=== PATIENT | male | born 1975 | race Caucasian/White ===

== ENCOUNTER 2016-09-14 14:29 | Emergency (ER) | payer OTHER ==
[2016-09-14] MEDS ORDERED: Sodium Chloride 0.9% 100 ML ONE (15:11)
[2016-09-14] MEDS ORDERED: cefTRIAXone\\ROCEPHIN 1 GM VIAL ONE (15:11)
[2016-09-14] MEDS ORDERED: methylPREDNISolone Sod Succ/PF 125 MG/2 ML VIAL ONE (15:11)
[2016-09-14] MEDS ORDERED: Albuterol Sulfate 1.25 MG/3 ML NEB ONE (15:25)
[2016-09-14] MEDS ORDERED: Albuterol Sulfate 2.5 mg/3 ml Neb ONE (15:59)
--- NOTE | 2016-09-14 16:56 | PICIS ---
[facility] EMERGENCY RECORD TRIAGE (MonSep 14, 2016 14:39 ERUI) TRIAGE NOTES: states went to dr office for flu shot, became sob, and chest tightness, sent here. (MonSep 14, 2016 14:39 ERUI) PATIENT: NAME: Thompson Rick, AGE: 41, GENDER: male, : Mon1975, TIME OF GREET: MonSep 14, 2016 14:29, PREFERRED LANGUAGE: Swiss, ETHNICITY: Not or , ECODE BILLING MAP: [facility], SSN: [id number], Zip Code: [address], KG WEIGHT: 77.11, PHONE: , , , PERSON ID: [id number], PAYMENT: X Medicaid, PCP: MD Patel Kyle. (MonSep 14, 2016 14:39 ERUI) COMPLAINT: sob/chest tightness. (MonSep 14, 2016 14:39 ERUI) ADMISSION: URGENCY: 3 Urgent, ADMISSION SOURCE: Home, TRANSPORT: CAR, BED: ER -02. (MonSep 14, 2016 14:39 ERUI) SIRS SCORING: Heart Rate 55-109 (0), Temp range 96.8-101.1 (0), respiratory rate 12-24 (0), Mental Status altered: no (0). (14:44 ERUI) TRIAGE SCREENING: Patient denies suicidal ideation, Patient denies presence of domestic violence. (14:44 ERUI) TREATMENTS IN PROGRESS: Treatments given Prehospital: none. (14:44 ERUI) PROVIDERS: TRIAGE NURSE: Ines Damico RN. (MonSep 14, 2016 14:39 ERUI) PREVIOUS VISIT ALLERGIES: chlorpromazine, Tetanus Toxoid. (MonSep 14, 2016 14:39 ERUI) chlorpromazine, Tetanus Toxoid. (14:44 ERUI) KNOWN ALLERGIES chlorpromazine: Reaction: turned red, hyper Tetanus Toxoid Tetanus Vaccines & Toxoid (Unconfirmed): Reaction: Hives Tetanus Vaccines and Toxoid (Unconfirmed): Reaction: Hives CURRENT MEDICATIONS metFORMIN: TABLET : Strength - 500 mg : ORAL Patient Dose: 500 mg Oral 2 times a day. (14:49 ERUI) albuterol sulfate: VIAL, NEBULIZER (ML) : Strength - 2.5 mg/3 mL (0.083 %) : INHALATION Patient Dose: 1 units Inhaler As Needed. (14:49 ERUI) hydrOXYzine pamoate: CAPSULE : Strength - 50 mg : ORAL Patient Dose: 50 mg Oral once a day (at bedtime). (14:49 ERUI) Imitrex: TABLET : Strength - 25 mg : ORAL Patient Dose: 25 mg Oral As Needed. (14:49 ERUI) atorvastatin: TABLET : Strength - 40 mg : ORAL Patient Dose: 1 tab(s) Oral once a day. (14:50 ERUI) &a-1R&a+25V*p+0X*g2868M*c202B*c15G*c2P*p-0X&a-25V&a+1R Name: Thompson Rick : 1975 M41 MedRec: [id number] AcctNum: [id number] Prepared: MonSep 14, 2016 17:47 by Interface Page 1 of 9 pMD [facility] EMERGENCY RECORD Invokana: TABLET : Strength - 300 mg : ORAL Patient Dose: 1 tab(s) Oral once a day. (14:51 ERUI) buPROPion HCl: TABLET, EXTENDED RELEASE : Strength - 150 mg : ORAL Patient Dose: 1 tab(s) Oral. (14:52 ERUI) citalopram: TABLET : Strength - 40 mg : ORAL Patient Dose: 1 tab(s) Oral. (14:53 ERUI) pantoprazole: TABLET, DELAYED RELEASE (ENTERIC COATED) : Strength - 40 mg : ORAL Patient Dose: 1 tab(s) Oral once a day (in the morning). (14:54 ERUI) VITAL SIGNS VITAL SIGNS: BP: 128/80, Pulse: 89, Resp: 18, Temp: 98.1 (Oral), Pain: 0, O2 sat: 96 on Room Air, Time: 09/14/2016 14:39. (14:39 ERUI) BP: 125/82, Pulse: 86, Resp: 18, Pain: 0, O2 sat: 99 on Room Air, Time: 09/14/2016 15:30. (15:30 AHOO) BP: 116/63, Pulse: 98, Resp: 18, Pain: 0, O2 sat: 97 on Room Air, Time: 09/14/2016 16:28. (16:28 ERUI) BP: 100/79, Pulse: 98, Resp: 18, Pain: 0, O2 sat: 100 on Room Air, Time: 09/14/2016 16:00. (16:00 ERUI) NURSING ASSESSMENT: CARDIOVASCULAR (14:47 ERUI) PAIN: substernal, feels tight, Patient rates pain as 0 out of 10, Pain exacerbated by nothing, Nothing has been tried to alleviate the pain. NURSING ASSESSMENT: RESPIRATORY /CHEST (14:44 ERUI) CONSTITUTIONAL: Patient arrives ambulatory, Gait steady, History obtained from patient, Patient appears comfortable, Patient cooperative, Patient alert, Oriented to person, place and time, Skin warm, Skin dry, Patient complains of sob, chest tightness. PAIN: Patient with sudden onset of pain. RESPIRATORY/CHEST: Lungs auscultated, Breath sounds with wheezing, to bilateral upper lobes, with inspiration, Respiratory assessment findings include respiratory effort easy, Respirations regular, Conversing normally, Neck and chest exam findings include trachea midline, Chest expansion equal, Chest movement symmetrical, no signs of distress, no associated cough noted, no associated fever. ENT: Ear assessment findings include ear normal to inspection. SAFETY: Side rails up, Cart/Stretcher in lowest position, Family at bedside, Call light within reach, Hospital ID band on. NURSING PROCEDURE: GENERAL SERVICE OFFICER (14:48 ERUI) PATIENT IDENTIFIER: Patient actively involved in identification process. GENERAL SERVICE OFFICER: Cardiac monitoring indicated for chest &a-1R&a+25V*p+0X*l6042C*c202B*c15G*c2P*p-0X&a-25V&a+1R Name: Thompson Rick Luis A : 1975 M41 MedRec: [id number] AcctNum: [id number] Prepared: MonSep 14, 2016 17:47 by Interface Page 2 of 9 pMD [facility] EMERGENCY RECORD tightness, Patient placed on cardiac catheterization technician, Heart rate: 94, showing normal sinus rhythm, Patient placed on non-invasive blood pressure monitor, Patient placed on continuous pulse oximetry, Adult/pediatric oxisensor applied. SAFETY: Side rails up, Cart/Stretcher in lowest position, Family at bedside, Call light within reach, Hospital ID band on. NURSING PROCEDURE: DISCHARGE NOTE (16:38 ERUI) DISCHARGE: Patient discharged to home, ambulating without assistance, family driving, accompanied by parent, Summary of Care printed/ provided, Patient requested and was provided an electronic copy of Discharge Instructions, Discharge instructions given to patient, Simple or moderate discharge teaching performed, Prescriptions given and instructions on side effects given, Name of prescription(s) given: cipro,prednesone, Above person(s) verbalized understanding of discharge instructions and follow-up care. BELONGINGS: Belongings remain with patient, Valuables remain with patient. NURSING PROCEDURE: EKG CHART (15:07 ERUI) PATIENT IDENTIFIER: Patient actively involved in identification process, Patient's identity verified by patient stating name, Patient's identity verified by patient stating date. EKG: EKG indicated for chest tightness, 12 lead EKG performed on the left chest, done by mari, first EKG. SAFETY: Side rails up, Cart/Stretcher in lowest position, Family at bedside, Call light within reach, Hospital ID band on. NURSING PROCEDURE: IV PATIENT IDENITIFIER: Patient actively involved in identification process, Patient's identity verified by patient stating name, Patient's identity verified by patient stating date. (15:18 ERUI) IV SITE 1: IV therapy indicated for medication administration, IV established, to the right forearm, using a 20 gauge catheter, in one attempt, Saline lock established, Labs drawn at time of placement, labeled in the presence of the patient and sent to lab. (15:18 ERUI) FOLLOW-UP SITE 1: IV discontinued, due to patient being discharged, catheter intact. (16:36 ERUI) SAFETY: Side rails up, Cart/Stretcher in lowest position, Family at bedside, Call light within reach, Hospital ID band on. (15:18 ERUI) ORDER DETAILS Order Name: EKG 12 Lead in Emergency Room, Status: Active, Time: 14:40 09/14/2016, User: RAND, - Ordered for: MD Jordy, Arley, - Entered by: MD Spence Richard - [facility] Sep 14, 2016 14:40, - Quantity: 1, &a-1R&a+25V*p+0X*p2655E*c202B*c15G*c2P*p-0X&a-25V&a+1R Name: Thompson Rick : 1975 M41 MedRec: [id number] AcctNum: [id number] Prepared: MonSep 14, 2016 17:47 by Interface Page 3 of 9 pMD [facility] EMERGENCY RECORD Order Name: ERRT * Smal Vol Neb Initial Trmt, Status: Active, Time: 15:45 09/14/2016, User: JOANNA, - Ordered for: MD Spence Richard, - Entered by: JOSIE Damico, Ines - MonSep 14, 2016 15:45, - Quantity: 1, Order Name: ERRT Oxygen Usage ER, Status: Active, Time: 14:47 09/14/2016, User: RAND, - Ordered for: MD Spence Richard, - Entered by: MD Spence Richard - MonSep 14, 2016 14:47, - Quantity: 1, Order Name: ERRT Pulse Oximeter ER, Status: Active, Time: 14:47 09/14/2016, User: RAND, - Ordered for: MD Spence Richard, - Entered by: MD Spence Richard - MonSep 14, 2016 14:47, - Quantity: 1, Order Name: SALINE LOCK, Status: Done, Time: 15:18 09/14/2016, User: JOANNA, - Ordered for: MD Spence Richard, - Entered by: MD Spence Richard - MonSep 14, 2016 14:44, - Quantity: 1, Order Name: XR Chest 1 View Portable, Status: Active, Time: 15:16 09/14/2016, User: RAND, - Ordered for: MD Spence Richard, - Entered by: MD Spence Richard - MonSep 14, 2016 15:16, - Quantity: 1. MEDICATION ADMINISTRATION SUMMARY Drug Name: albuterol sulfate inhalation, Dose Ordered: 2.5MG/3ML mL, Route: Inhaler, Status: Canceled, Time: 15:32 09/14/2016, Drug Name: albuterol sulfate inhalation, Dose Ordered: 2.5 mg, Route: Nebulize, Status: Given, Time: 15:36 09/14/2016, Drug Name: *DuoNeb, Dose Ordered: 3 mL, Route: Nebulize, Status: Given, Time: 15:22 09/14/2016, Drug Name: cefTRIAXone injection, Dose Ordered: 1 g, Route: IV Piggy Back, Status: Given, Time: 15:19 09/14/2016, Drug Name: methylPREDNISolone sodium succ injection, Dose Ordered: 125 mg, Route: IV Push, Status: Given, Time: 15:15 09/14/2016, *Additional information available in notes, Detailed record available in Medication Service section. MEDICATION SERVICE albuterol sulfate inhalation: Order: albuterol sulfate inhalation (albuterol sulfate) - Dose: 2.5 mg : Nebulize Schedule: Now Ordered by: Arley Spence MD Entered by: Jennifer Witt LVN MonSep 14, 2016 15:35 , Acknowledged by: Jennifer Witt LVN MonSep 14, 2016 15:35 Documented as given by: Jennifer Witt LVN MonSep 14, 2016 15:36 Patient, Medication, Dose, Route and Time verified prior to &a-1R&a+25V*p+0X*n8308L*c202B*c15G*c2P*p-0X&a-25V&a+1R Name: Thompson Rick : 1975 2 MedRec: [id number] AcctNum: [id number] Prepared: MonSep 14, 2016 17:47 by Interface Page 4 of 9 D [facility] EMERGENCY RECORD administration. Amount given: 2.5MG, Correct patient, time, route, dose and medication confirmed prior to administration, Patient advised of actions and side-effects prior to administration, Allergies confirmed and medications reviewed prior to administration, Patient in position of comfort, Side rails up, Cart in lowest position, Family at bedside. : Follow Up : Response assessment performed, No signs or symptoms of allergic reaction noted. (15:54 AHOO) cefTRIAXone injection: Order: cefTRIAXone injection (ceftriaxone sodium) - Dose: 1 g : IV Piggy Back Schedule: Now Ordered by: Arley Spence MD Entered by: Arley Spence MD MonSep 14, 2016 14:45 , Acknowledged by: Ines Damico RN MonSep 14, 2016 15:03 Documented as given by: Jennifer Witt LVN MonSep 14, 2016 15:19 Patient, Medication, Dose, Route and Time verified prior to administration. Amount given: 1 gram, IV SITE #1 IVPB or drip, initial infusion, Awake and alert- acceptable, Verified Blood Culture collection prior to Antibiotic administration, Patient in position of comfort, Side rails up, Cart in lowest position, Family at bedside, BLOOD CULTURES WERE NOT COLLECTED BEFORE MEDICATION WAS STARTED, I ASKED THE ER DOCTOR AND HE SAID NO HE DID NOT WANT BLOOD CULTURES, TO GO AHEAD AND HANG THE ABX. : Follow Up : Response assessment performed, No signs or symptoms of allergic reaction noted, _IV SITE #1:_, Medication infusion discontinued, on MonSep 14, 2016 15:53, 35 minutes, ., Total amount infused: 100ML, IV Line flushed after administration. (15:52 AHOO) DuoNeb: Order: DuoNeb (ipratropium bromide/albuterol sulfate) - Dose: 3 mL : Nebulize Notes: (0.5mg Ipratropium Maurepas/3mg Albuterol Sulfate = 3ml) Ordered by: Arley Spence MD Entered by: Arley Spence MD MonSep 14, 2016 14:45 , Acknowledged by: Ines Damico RN MonSep 14, 2016 15:03, Acknowledged by: Ines Damico RN MonSep 14, 2016 15:03 Documented as given by: Jennifer Witt LVN MonSep 14, 2016 15:22 Patient, Medication, Dose, Route and Time verified prior to administration. Amount given: 3 ml, Correct patient, time, route, dose and medication confirmed prior to administration, Patient advised of actions and side-effects prior to administration, Allergies confirmed and medications reviewed prior to administration, Patient in position of comfort, Side rails up, Cart in lowest position, Family at bedside. : Follow Up : Response assessment performed, No signs or symptoms of allergic reaction noted. (15:00 AHOO) methylPREDNISolone sodium succ injection: Order: methylPREDNISolone sodium succ injection (methylprednisolone sod &a-1R&a+25V*p+0X*w6675J*c202B*c15G*c2P*p-0X&a-25V&a+1R Name: Thompson Rick Luis A : 1975 M41 MedRec: [id number] AcctNum: [id number] Prepared: MonSep 14, 2016 17:47 by Interface Page 5 of 9 pMD [facility] EMERGENCY RECORD succ) - Dose: 125 mg : IV Push Schedule: Now Ordered by: Arley Spence MD Entered by: Arley Spence MD MonSep 14, 2016 14:45 , Acknowledged by: Ines Damico RN MonSep 14, 2016 15:03 Documented as given by: Jennifer Witt LVN MonSep 14, 2016 15:15 Patient, Medication, Dose, Route and Time verified prior to administration. Amount given: 125mg, IV SITE #1 IVP, initial medication, Slowly, Awake and alert- acceptable, Catheter placement confirmed via flush prior to administration, IV site without signs or symptoms of infiltration during medication administration, No swelling during administration, No drainage during administration, IV flushed after administration, Correct patient, time, route, dose and medication confirmed prior to administration, Patient advised of actions and side-effects prior to administration, Allergies confirmed and medications reviewed prior to administration, Patient in position of comfort, Side rails up, Cart in lowest position, Family at bedside. : Follow Up : Response assessment performed, No signs or symptoms of allergic reaction noted, _IV SITE #1:_. (15:53 AHOO) (CANCELED) albuterol sulfate inhalation: Order: albuterol sulfate inhalation (albuterol sulfate) - Dose: 2.5MG/3ML mL : Inhaler Schedule: Now Ordered by: Arley Spence MD Entered by: Jennifer Witt LVN MonSep 14, 2016 15:31 Canceled by: Jennifer Witt LVN. MonSep 14, 2016 15:32 Cancel reason: Change in medication plan. HPI SHORTNESS OF BREATH (14:52 RW) CHIEF COMPLAINT: Patient presents for evaluation of shortness of breath, Denies chest pain, Patient presents for evaluation of started a few minutes ago after smoking; pt heavy daily smoker. HISTORIAN: History provided by patient, "feels like asthma attack" "did not use his inhaler this time". LOCATION: No localizing symptoms. QUALITY: Symptoms described as wheezing, Described as similar to previous episodes. SEVERITY: Maximum severity of symptoms mild, Currently symptoms are mild, Maximum severity of pain rated as 0/10, Current severity of pain rated as 0/10. TIME COURSE: Patient unable to describe onset of symptoms, There has been no change in the patient's symptoms over time. ASSOCIATED WITH: Associated with anxiety. EXACERBATED BY: Patient's condition exacerbated by smoking. RELIEVED BY: Patient's condition relieved by inhaler use, Albuterol. RISK FACTORS: No coronary artery disease risk factors, No thoracic aortic dissection risk factors, No pulmonary embolism risk factors. ROS (14:54 RWAG) &a-1R&a+25V*p+0X*n6193C*c202B*c15G*c2P*p-0X&a-25V&a+1R Name: Thompson Rick : 1975 M41 MedRec: [id number] AcctNum: [id number] Prepared: MonSep 14, 2016 17:47 by Interface Page 6 of 9 pMD [facility] EMERGENCY RECORD CONSTITUTIONAL: Negative constitutional review of systems. EYES: Negative eye review of systems. ENT: Negative ears, nose, throat review of systems. CARDIOVASCULAR: Negative cardiovascular review of systems. RESPIRATORY: Historian reports shortness of breath, reports wheezing. GI: Negative gastrointestinal review of systems. GENITOURINARY MALE: Negative genitourinary review of systems. MUSCULOSKELETAL: Negative musculoskeletal review of systems. SKIN: Negative skin review of systems. NEUROLOGIC: Negative neurologic review of systems. ENDOCRINE: Negative endocrine review of systems. HEMO/LYMPHATIC: Normal hematologic/lymphatic system review. ALLERGIC/IMMUNOLOGIC: Normal allergy/immunologic system review. PSYCHIATRIC: Historian reports anxiety. NOTES: All systems reviewed, negative except as described above. PAST MEDICAL HISTORY (14:44 ERUI) MEDICAL HISTORY: Past medical history includes history of diabetes, Type II, , Tetanus not up to date, Pneumococcal vaccine up to date, Past medical history includes history of diabetes, Type II, Past medical history includes neurological disease, migraine headaches,, Past medical history includes pulmonary disease, asthma, chronic obstructive pulmonary disease. 09/14/16. MALE SURGICAL HISTORY: Surgical history of cholecystectomy, laparoscopic, Surgical history of orthopedic surgery, right knee and rt shoulder. 09/14/16. PSYCHIATRIC HISTORY: Psychiatric history includes, depression, . SOCIAL HISTORY: Patient currently uses tobacco, Patient smokes cigarettes, Patient smokes 1 pack per day, Patient drinks socially, rarely, Patient denies drug use. PHYSICAL EXAM (14:55 RWAG) CONSTITUTIONAL: Vital Signs Reviewed, Patient afebrile, Normal pulse oximetry. HEAD: Head exam normal. EYES: Eye exam normal. ENT: ENT exam normal. NECK: Neck exam normal. RESPIRATORY CHEST: Wheezing present, scattered. CARDIOVASCULAR: Cardiovascular assessment normal. ABDOMEN MALE: Abdominal exam normal. GENITOURINARY MALE: External genitalia normal. BACK: Back exam normal. UPPER EXTREMITY: Upper extremity exam normal. LOWER EXTREMITY: Lower extremity exam normal. NEURO: Neuro exam normal. SKIN: Skin exam normal. &a-1R&a+25V*p+0X*a1139A*c202B*c15G*c2P*p-0X&a-25V&a+1R Name: Thompson Rick : 1975 M41 MedRec: [id number] AcctNum: [id number] Prepared: MonSep 14, 2016 17:47 by Interface Page 7 of 9 pMD [facility] EMERGENCY RECORD LYMPHATIC: Lymphatic exam normal. PSYCHIATRIC: Psychiatric exam normal. EVENTS TRANSFER: Triage to Emergency Emergency Room -02. (14:39 ERUI) Removed from Emergency Emergency Room -02. (16:41 ERUI) RADIOLOGYINTERPRETATION (16:11 RWAG) CHEST: Chest films negative, no infiltrates, no pneumothorax, no hemothorax, no masses, no cardiomegaly, no congestive heart failure, no effusion, no free air. DOCTOR NOTES (14:57 RWAG) TEXT: pt has chronic lower extremity edema. Sees wound care for LLE venous stasis ulcer. PROBLEM LIST No recorded problems DIAGNOSIS (16:16 RWAG) FINAL: PRIMARY: Asthma, ADDITIONAL: Chronic bronchitis. DISPOSITION PATIENT: Disposition Type: Discharge, Disposition: *Discharge Home, Disposition Transport: Car, Condition: Improved. (16:16 RWAG) Patient left the department. (16:41 ERUI) INSTRUCTION (16:16 RWAG) DISCHARGE: ASTHMA, ACUTE (ADULT), ASTHMATIC BRONCHITIS ADULT. FOLLOWUP: MD Patel Kyle, [facility], [address] [phone], , Follow up with Primary Care Physician in 2-3 days. SPECIAL: Follow-up with your PCP. PRESCRIPTION Cipro tablet: TABLET : 500 mg : ORAL : Quantity: 1 Unit: tab(s) Route: ORAL Schedule: every 12 hours Dispense: 14 Unit: tab(s) May substitute. Refills: No Refills . (16:12 RWAG) NOTES: No refills. (16:12 RWAG) predniSONE oral: TABLET : 20 mg : ORAL : Quantity: 3 Unit: tab(s) Route: ORAL Schedule: once a day (in the morning) Dispense: 15 Unit: tab(s) May substitute. Refills: No Refills . (16:14 RWAG) NOTES: No refills. (16:14 RWAG) Proventil HFA: HFA AEROSOL WITH ADAPTER (GRAM) : 90 mcg : INHALATION : Quantity: 1 Unit: puff(s) Route: INHALATION Schedule: every 4 hours prn Dispense: 1 Unit: inhalation May substitute. Refills: 3 . (16:18 RWAG) &a-1R&a+25V*p+0X*k8120I*c202B*c15G*c2P*p-0X&a-25V&a+1R Name: Thompson Rick : 1975 [employer] MedRec: [id number] AcctNum: [id number] Prepared: MonSep 14, 2016 17:47 by Interface Page 8 of 9 pMD [facility] EMERGENCY RECORD NOTES: dispense one inhaler No refills. (16:18 RWAG) IMAGING *EKG: Image captured from scanner. (15:50 AHOO) *DISCHARGE INSTRUCTIONS RECEIPT: Image captured from scanner. (16:40 ERUI) *SUPPLY CHARGE SHEET: Image captured from scanner. (16:40 ERUI) ADMIN (17:40 RWAG) DIGITAL SIGNATURE: MD Spence Richard. Raman: AHOO=SCHUYLER Witt, November ERUI=JOSIE Damico, Ines RWAG=MD Spence Richard &a-1R&a+25V*p+0X*c3512F*c202B*c15G*c2P*p-0X&a-25V&a+1R Name: Thompson Rick : 1975 [employer] MedRec: [id number] AcctNum: [id number] Prepared: MonSep 14, 2016 17:47 by Interface Page 9 of 9 pMD [facility] MEDICATION RECONCILIATION You were seen in the Emergency Department on: MonSep 14, 2016 KNOWN ALLERGIES chlorpromazine: Reaction: turned red, hyper Tetanus Toxoid Tetanus Vaccines & Toxoid (Unconfirmed): Reaction: Hives Tetanus Vaccines and Toxoid (Unconfirmed): Reaction: Hives MEDICATIONS GIVEN WHILE IN THE EMERGENCY DEPARTMENT methylPREDNISolone sodium succ injection (methylprednisolone sod succ) - Dose: 125 milligram(s) : IV Push cefTRIAXone injection (ceftriaxone sodium) - Dose: 1 gram(s) : IV Piggy Back DuoNeb (ipratropium bromide/albuterol sulfate) - Dose: 3 milliliter(s) : Nebulize albuterol sulfate inhalation (albuterol sulfate) - Dose: 2.5 milligram(s) : Nebulize HOME MEDICATIONS albuterol sulfate : VIAL, NEBULIZER (ML) : Strength - 2.5 mg/3 mL (0.083 %) : INHALATION Patient had been takin units Inhaler As Needed. atorvastatin : TABLET : Strength - 40 mg : ORAL Patient had been takin tab(s) Oral once a day. buPROPion HCl : TABLET, EXTENDED RELEASE : Strength - 150 mg : ORAL Patient had been takin tab(s) Oral. citalopram : TABLET : Strength - 40 mg : ORAL Patient had been takin tab(s) Oral. hydrOXYzine pamoate : CAPSULE : Strength - 50 mg : ORAL Patient had been takin mg Oral once a day (at bedtime). Imitrex : TABLET : Strength - 25 mg : ORAL Patient had been takin mg Oral As Needed. Invokana : TABLET : Strength - 300 mg : ORAL Patient had been takin tab(s) Oral once a day. &a-1R&a+25V*p+0X*l5669M*c202B*c15G*c2P*p-0X&a-25V&a+1R Name: PrabhjotThompson : 1975 M41 MedRec: [id number] AcctNum: [id number] Prepared: MonSep 14, 2016 17:47 by Interface D [facility] MEDICATION RECONCILIATION metFORMIN : TABLET : Strength - 500 mg : ORAL Patient had been takin mg Oral 2 times a day. pantoprazole : TABLET, DELAYED RELEASE (ENTERIC COATED) : Strength - 40 mg : ORAL Patient had been takin tab(s) Oral once a day (in the morning). Notes from the emergency department Reviewed with patient PRESCRIPTIONS (3) Printed (3) Cipro tablet : TABLET : 500 mg : ORAL Quantity: 1, Unit: tab(s), Route: ORAL, Schedule: every 12 hours, Dispense: 14 Unit: tab(s) predniSONE oral : TABLET : 20 mg : ORAL Quantity: 3, Unit: tab(s), Route: ORAL, Schedule: once a day (in the morning), Dispense: 15 Unit: tab(s) &a-1R&a+25V*p+0X*y8680W*c202B*c15G*c2P*p-0X&a-25V&a+1R Name: Thompson Rick : 1975 2 MedRec: [id number] AcctNum: [id number] Prepared: MonSep 14, 2016 17:47 by Interface pMD JS
--- NOTE | 2016-09-14 17:20 | RAD ---
PORTABLE CHEST: Date: 09/14/16 An AP portable film at 1516 hours is compared with the 05/10/15 study. FINDINGS: The heart size is stable and is normal. The lungs are clear. There is no edema, congestion, or focal pulmonary infiltrate. The trachea is midline and the mediastinum appears normal. IMPRESSION: No acute thoracic finding. POS: HOME
== END 2016-09-14 16:35 | disposition home or self-care (01) ==
LOC: BURERS 14:29
DX: J44.9 Chronic obstructive pulmonary disease, unspecified (principal); E11.9 Type 2 diabetes mellitus without complications; G43.909 Migraine, unspecified, not intractable, without status migrainosus; F17.210 Nicotine dependence, cigarettes, uncomplicated; Z79.84 Long term (current) use of oral hypoglycemic drugs; Z79.899 Other long term (current) drug therapy
CPT/HCPCS: 71010; 93005; 94640; 94760; 96365; 96375; J0696; J2930; J7050; J7611; J7620

== ENCOUNTER 2016-10-18 11:37 | Outpatient (CLI) | payer OTHER ==
[2016-10-18 13:16] LABS: ALT (SGPT) 36 U/L (0-55); AST (SGOT) 21 U/L (5-34); Alkaline Phosphatase 111 U/L (40-150); Anion Gap 15 mmol/L (10-20); BUN (Urea Nitrogen) 13 mg/dL (8.9-20.6); Bilirubin, Total 0.4 mg/dL (0.2-1.2); Calc. Creatinine Clearance 0 mL/min (70-130); Calcium 9.7 mg/dL (7.8-10.44); Carbon Dioxide 26 mmol/L (22-29); Chloride 105 mmol/L (98-107); Estimated GFR-MDRD 87; Globulin 2.4 g/dL (2.4-3.5); Protein, Total 6.8 g/dL (6.0-8.3)
[2016-10-18 13:19] LABS: #Basophils 0.1 thou/uL (0.0-0.2); #Eosinphils 0.2 thou/uL (0.0-0.7); #Lymphocytes 3.1 thou/uL (1.20-3.40); #Monocytes 0.8 thou/uL (0.11-0.59); #Neutrophils 9.4 thou/uL (1.40-6.50); %Basophils 0.6 % (0.0-1.0); %Eosinophils 1.1 % (0.0-10.0); %Monocytes 5.8 % (0.0-10.0); Hematocrit 53.6 % (42.0-52.0); Hemoglobin A1c 7.2 % (4.0-6.0); Mean Platelet Volume 6.1 fL (7.4-10.4); Red Blood Cell (RBC) Count 6.07 mill/uL (4.70-6.10); White Blood Cell (WBC) Count 13.5 thou/uL (4.8-10.8)
== END 2016-10-18 11:38 ==
LOC: HPCALD 11:37
PROVIDERS: ATTEND Family Medicine
DX: E78.5 Hyperlipidemia, unspecified (principal); E11.9 Type 2 diabetes mellitus without complications
CPT/HCPCS: 36415; 80053; 80061; 83036; 85025

== ENCOUNTER 2017-01-20 09:40 | Outpatient (CLI) | payer OTHER ==
[2017-01-20 13:25] LABS: #Basophils 0.1 thou/uL (0.0-0.2); #Eosinphils 0.2 thou/uL (0.0-0.7); #Monocytes 0.6 thou/uL (0.11-0.59); #Neutrophils 5.1 thou/uL (1.40-6.50); %Basophils 0.9 % (0.0-1.0); %Eosinophils 2.4 % (0.0-10.0); %Lymphocytes 39.8 % (21.0-51.0); %Monocytes 6.2 % (0.0-10.0); %Neutrophils 50.7 % (42.0-75.0); Hemoglobin 16.7 g/dL (14.0-18.0); Mean Corpuscular HGB CONC 33.5 g/dL (32.0-36.0); Mean Corpuscular Hemoglobin 29.4 pg (27.0-31.0); Mean Corpuscular Volume 87.7 fl (80.0-94.0); Mean Platelet Volume 6.7 fL (7.4-10.4); Platelet Count 269 thou/uL (130-400); RBC Distribution Width 12.3 % (11.5-14.5); Red Blood Cell (RBC) Count 5.68 mill/uL (4.70-6.10); White Blood Cell (WBC) Count 10.1 thou/uL (4.8-10.8)
[2017-01-20 14:16] LABS: ALT (SGPT) 24 U/L (8-55); AST (SGOT) 13 U/L (5-34); Albumin 4.4 g/dL (3.5-5.0); Alkaline Phosphatase 71 U/L (40-150); Anion Gap 17 mmol/L (10-20); BUN (Urea Nitrogen) 19 mg/dL (8.9-20.6); Bilirubin, Total 0.3 mg/dL (0.2-1.2); Calc. Creatinine Clearance 0 mL/min (70-130); Calcium 9.3 mg/dL (7.8-10.44); Carbon Dioxide 24 mmol/L (22-29); Cardiac Risk 5.9 (Less than 4.5); Chloride 105 mmol/L (98-107); Cholesterol 218 mg/dl (< 200 Desired); Estimated GFR-MDRD 74; Globulin 2.2 g/dL (2.4-3.5); Glucose 165 mg/dL (70-105); HDL Cholesterol 37 mg/dL (>60 Neg Risk); Hemoglobin A1c 6.7 % (4.0-6.0); LDL Cholesterol, Calculated 131 mg/dL; Potassium 4.5 mmol/L (3.5-5.1); Protein, Total 6.6 g/dL (6.0-8.3); Sodium 141 mmol/L (136-145); Triglycerides 252 mg/dL (Less than 150)
== END 2017-01-20 09:41 | disposition home or self-care (01) ==
LOC: HPCALD 09:40
PROVIDERS: ATTEND Family Medicine
DX: E78.5 Hyperlipidemia, unspecified (principal); E11.9 Type 2 diabetes mellitus without complications
CPT/HCPCS: 36415; 80053; 80061; 83036; 85025

== ENCOUNTER 2017-07-28 12:53 | Emergency (ER) | payer OTHER ==
[2017-07-28] MEDS ORDERED: Insulin Regular 300 UNITS/3 ML VIAL ONE (13:19)
[2017-07-28 13:26] LABS: #Basophils 0.1 thou/uL (0.0-0.2); #Eosinphils 0.1 thou/uL (0.0-0.7); #Lymphocytes 2.5 thou/uL (1.20-3.40); #Monocytes 0.6 thou/uL (0.11-0.59); #Neutrophils 7.7 thou/uL (1.40-6.50); %Basophils 0.6 % (0.0-1.0); %Lymphocytes 22.3 % (21.0-51.0); %Monocytes 5.8 % (0.0-10.0); %Neutrophils 70.3 % (42.0-75.0); Hemoglobin 15.9 g/dL (14.0-18.0); Mean Corpuscular Hemoglobin 29.1 pg (27.0-31.0); Mean Corpuscular Volume 88.1 fl (80.0-94.0); Mean Platelet Volume 7.6 fL (7.4-10.4); Platelet Count 194 thou/uL (130-400); RBC Distribution Width 12.2 % (11.5-14.5); Red Blood Cell (RBC) Count 5.46 mill/uL (4.70-6.10)
[2017-07-28 13:32] LABS: pH (venous) 7.36 (7.35-7.45)
[2017-07-28 13:33] LABS: Base Excess -0.3 mEq/L (-2 - +2); Hemoglobin (Hb) 16.3 g/dL (13.2-17.3)
[2017-07-28 13:36] LABS: Bilirubin Negative (Negative); Blood, Urine Negative (Negative); Clarity Clear (Clear); Glucose, Urine (Dipstick) 500 mg/dL (Negative); Leukocyte Negative (Negative); Nitrite Negative (Negative); Protein, Urine (Dipstick) Negative (Neg-Trace); Urobilinogen 0.2 mg/dL (0.2-1.0)
[2017-07-28 13:45] LABS: ALT (SGPT) 26 U/L (8-55); AST (SGOT) 12 U/L (5-34); Albumin 3.9 g/dL (3.5-5.0); Alkaline Phosphatase 141 U/L (40-150); Anion Gap 16 mmol/L (10-20); BUN (Urea Nitrogen) 17 mg/dL (8.9-20.6); Bilirubin, Total 0.4 mg/dL (0.2-1.2); Calc. Creatinine Clearance 0 mL/min (70-130); Calcium 9.3 mg/dL (7.8-10.44); Carbon Dioxide 23 mmol/L (22-29); Chloride 96 mmol/L (98-107); Estimated GFR-MDRD 76; Globulin 2.9 g/dL (2.4-3.5); Potassium 4.5 mmol/L (3.5-5.1); Protein, Total 6.8 g/dL (6.0-8.3); Sodium 130 mmol/L (136-145)
[2017-07-28 13:53] LABS: Glucose 736 mg/dL (70-105)
== END 2017-07-28 17:36 | disposition home or self-care (01) ==
LOC: BURERS 12:53
DX: E11.65 Type 2 diabetes mellitus with hyperglycemia (principal); G43.909 Migraine, unspecified, not intractable, without status migrainosus; J45.909 Unspecified asthma, uncomplicated; F32.9 Major depressive disorder, single episode, unspecified; F17.210 Nicotine dependence, cigarettes, uncomplicated; Z79.84 Long term (current) use of oral hypoglycemic drugs; Z79.899 Other long term (current) drug therapy
CPT/HCPCS: 36416; 80053; 81003; 82805; 85025; 94760; 96361; 96365; 96366; 96376; J1815

== ENCOUNTER 2017-12-08 15:06 | Outpatient (CLI) | payer OTHER ==
--- NOTE | 2017-12-08 20:54 | RAD ---
CHEST TWO VIEWS: 12/08/17 Comparison is made with a 09/14/16 study. The heart remains normal in size and the lungs are clear. No infiltrate ore effusion was seen. The me diastinum appears normal. A small subcentimeter density in the right mid lung zone is probably just a confluence of vessels. IMPRESSION: No acute thoracic finding. POS: HOME
== END 2017-12-08 15:07 | disposition home or self-care (01) ==
LOC: BURRAD 15:06
PROVIDERS: ATTEND Internal Medicine Gastroenterology
DX: E11.65 Type 2 diabetes mellitus with hyperglycemia (principal); K63.5 Polyp of colon; K21.9 Gastro-esophageal reflux disease without esophagitis; R11.2 Nausea with vomiting, unspecified; R63.4 Abnormal weight loss; F17.200 Nicotine dependence, unspecified, uncomplicated
CPT/HCPCS: 71046

== ENCOUNTER 2018-09-29 02:22 | Emergency (ER) | payer OTHER ==
[2018-09-29] MEDS ORDERED: Neomycin-Polymyxin-Hc 7.5 ML BOT ONE (02:51)
[2018-09-29] MEDS ORDERED: traMADol HCl 50 MG TAB ONE (02:52)
[2018-09-29] MEDS ORDERED: Dexamethasone 4 mg/ml Vial ONE (02:53)
== END 2018-09-29 03:05 | disposition home or self-care (01) ==
LOC: BURERS 02:22
DX: H60.92 Unspecified otitis externa, left ear (principal); J06.9 Acute upper respiratory infection, unspecified; E11.9 Type 2 diabetes mellitus without complications; G43.909 Migraine, unspecified, not intractable, without status migrainosus; J45.909 Unspecified asthma, uncomplicated; F32.9 Major depressive disorder, single episode, unspecified; F17.210 Nicotine dependence, cigarettes, uncomplicated; Z79.899 Other long term (current) drug therapy; Z79.84 Long term (current) use of oral hypoglycemic drugs; Z79.51 Long term (current) use of inhaled steroids
CPT/HCPCS: 99283; J1100

== ENCOUNTER 2018-10-08 14:55 | Outpatient (CLI) | payer OTHER ==
--- NOTE | 2018-10-08 17:59 | RAD ---
CHEST TWO VIEWS: 10/08/2018 COMPARISON: 12/08/2017 FINDINGS: The heart is normal in size. The lungs are clear. There is no sign of pneumonia or other acute pare nchymal process. No effusions are seen. The right hilum is a little more prominent than the left, b ut the shape is really no different from the November study of last year. IMPRESSION: No acute thoracic finding. POS: HOME
== END 2018-10-08 14:56 | disposition home or self-care (01) ==
LOC: BURRAD 14:55
PROVIDERS: ATTEND Family Medicine
DX: J40 Bronchitis, not specified as acute or chronic (principal)
CPT/HCPCS: 71046

== ENCOUNTER 2020-01-22 11:53 | Outpatient (CLI) | payer OTHER ==
--- NOTE | 2020-01-22 18:12 | RAD ---
LEFT SECOND TOE: 01/22/20 No fracture or joint abnormality was seen. All bones and joints appear normal. IMPRESSION: No acute findings. POS: HOME
--- NOTE | 2020-01-22 20:21 | RAD ---
LEFT THIRD FINGER 01/22/20 Three views show no fracture or opaque foreign body. The joints appear normal. Attention is drawn to the tuft of the distal phalanx. The radial side of it is indistinct. This was not the case on a film. I do not know if there are current symptoms here or not. Sometimes osteomyelitis can present in such a fashion. Correlate the finding with the clinical exam. Incidentally noted is a metallic BB in the soft tissues of the palmar region which was present previously. IMPRESSION: Indistinct margin of the terminal tuft of the distal phalanx. See discussion above. Correlate with ex act site of clinical symptoms. POS: HOME
== END 2020-01-22 11:54 | disposition home or self-care (01) ==
LOC: BURRAD 11:53
PROVIDERS: ATTEND Family Medicine
DX: S69.92XA Unspecified injury of left wrist, hand and finger(s), initial encounter (principal); S99.922A Unspecified injury of left foot, initial encounter; M86.9 Osteomyelitis, unspecified

== ENCOUNTER 2020-12-01 18:13 | Emergency (ER) | payer OTHER | END 2020-12-01 19:00 | disposition home or self-care (01) | LOC: BURERS 18:13 | DX: H92.01 Otalgia, right ear (principal); E11.9 Type 2 diabetes mellitus without complications; I10 Essential (primary) hypertension; J45.909 Unspecified asthma, uncomplicated; F17.210 Nicotine dependence, cigarettes, uncomplicated | CPT/HCPCS: 99282 ==